=== PATIENT | female | born 1960 | race Caucasian/White ===

== ENCOUNTER → 2020-03-03 | Outpatient (CLI) | payer BC ==
[~2020-03-03] MED LIST: AMLO10TA8 PO; ATOR40TA78 PO; CALC-112 PO; CETI10CA PO; LEVO75TA5 PO; MV-M1TAB16 PO; OMEG100023 PO; PANT40TA6 PO; VALIUM PO
[2020-03-03 10:32] LABS: ALBUMIN 4.1 g/dL (3.4-5.0); ANION GAP 6 mmol/L (5-15); CALCIUM 9.7 mg/dL (8.5-10.1); CHLORIDE 106 mmol/L (98-107)
[2020-03-03 10:36] LABS: ALANINE AMINOTRANSFERASE 41 U/L (12-78); ALKALINE PHOSPHATASE 103 U/L (45-117); BILIRUBIN,TOTAL 0.4 mg/dL (0.2-1.0); CREATININE 1.18 mg/dL (0.55-1.02); TOTAL PROTEIN 7.8 g/dL (6.4-8.2)
== END | disposition home or self-care (01) ==
LOC: STAR 08:31
PROVIDERS: ATTEND Surgery
DX: Z01.818 Encounter for other preprocedural examination (principal); Z20.828 Contact with and (suspected) exposure to other viral communicable diseases; C50.412 Malignant neoplasm of upper-outer quadrant of left female breast; C50.511 Malignant neoplasm of lower-outer quadrant of right female breast
CPT/HCPCS: 36415; 80053; 87635; 93005

== ENCOUNTER 2020-03-08 07:59 | Inpatient (IN) | payer BC ==
[~2020-03-08] VITALS: Ht 167.6 cm; Wt 89.3 kg
[~2020-03-08 07:59] MED LIST changes: -VALIUM PO
[2020-03-08] MEDS ORDERED: VALIUM PO (08:39)
[2020-03-08 08:42] VITALS: BP 134/90
[2020-03-08] MEDS ORDERED: CHLORHEXIDINE 15 ML UDC MM ONE (09:00)
[2020-03-08] MEDS ORDERED: LACTATED RINGERS 1,000 ML IV SCH (09:00)
[2020-03-08] MEDS ORDERED: LIDOCAINE-MPF 1%, 5ML ONE (09:46)
[2020-03-08] MEDS ORDERED: BUPIVACAINE/PF 0.5% ONE (12:35)
[2020-03-08] MEDS ORDERED: EPINEPHRINE 1 MG/ML, 1ML ONE (12:35)
[2020-03-08] MEDS ORDERED: ISOSULFAN BLUE 10 MG/ML, 5ML IV ONE (12:35)
[2020-03-08] MEDS ORDERED: SCOPOLAMINE 1MG PATCH TD ONE (12:44)
[2020-03-08] MEDS ORDERED: ACETAMINOPHEN 500 MG TABLET ONE (12:44)
[2020-03-08] MEDS ORDERED: FENTANYL PF 250 MCG/5ML ONE ×3 (12:51→14:17)
[2020-03-08] MEDS ORDERED: PROPOFOL 50 ML ONE ×2 (12:53→13:52)
[2020-03-08] MEDS ORDERED: LIDOCAINE 2%, 20ML ONE (12:59)
[2020-03-08] MEDS ORDERED: METOPROLOL 1 MG/ML, 5ML ONE (12:59)
[2020-03-08] MEDS ORDERED: ACETAMINOPHEN 500 MG TABLET PO ONE (13:00)
[2020-03-08] MEDS ORDERED: SCOPOLAMINE 1MG PATCH TD SCH (13:00)
[2020-03-08] MEDS ORDERED: BUPIVACAINE/PF-EPI 0.5% 1:200K INFIL ONE (13:18)
[2020-03-08] MEDS ORDERED: LABETALOL 5MG/ML, 20ML IV PRN (13:30)
[2020-03-08] MEDS ORDERED: hydrALAzine 20 MG/ML, 1ML IV PRN ×2 (13:30→15:30)
[2020-03-08] MEDS ORDERED: HYDROmorphone 1 MG/ML, 1ML INJ IVPush PRN (13:30)
[2020-03-08] MEDS ORDERED: MEPERIDINE/PF 25MG/0.5ML IVPush PRN (13:30)
[2020-03-08] MEDS ORDERED: EPHEDRINE 50 MG/ML, 1ML IVPush PRN (13:30)
[2020-03-08] MEDS ORDERED: HALOPERIDOL 5 MG/ML IV PRN (13:30)
[2020-03-08] MEDS ORDERED: ONDANSETRON 2MG/ML, 2ML IVPush PRN ×2 (13:30→15:30)
[2020-03-08] MEDS ORDERED: PROMETHAZINE 12.5 MG SUPP PR PRN (13:30)
[2020-03-08] MEDS ORDERED: KETOROLAC 30 MG/1 ML IVPush PRN (13:30)
[2020-03-08] MEDS ORDERED: OXYcodone 5 MG/5 ML ORAL.SOL UDC PO PRN (13:30)
[2020-03-08] MEDS ORDERED: FENTANYL PF 100 MCG/2ML IV PRN (13:30)
[2020-03-08] MEDS ORDERED: METHOCARBAMOL 1,000 MG in DEXTROSE 5% 100 ML IV PRN (13:30)
[2020-03-08] MEDS ORDERED: SUCCINYLCHOLINE 20 MG/ML, 10ML ONE (14:58)
[2020-03-08] MEDS ORDERED: CEFAZOLIN 1,000 MG ONE (14:58)
[2020-03-08] MEDS ORDERED: ROCURONIUM 10MG/ML,5ML ONE (14:58)
[2020-03-08] MEDS ORDERED: NALOXONE 0.4 MG/ML, 1ML ONE (14:58)
[2020-03-08] MEDS ORDERED: GLYCOPYRROLATE 0.2MG/1ML, 5ML ONE (14:58)
[2020-03-08] MEDS ORDERED: NEOSTIGMINE 1 MG/ML, 10ML ONE (14:58)
[2020-03-08] MEDS ORDERED: ONDANSETRON 2MG/ML, 2ML ONE (14:58)
[2020-03-08] MEDS ORDERED: DEXAMETHASONE 4 MG/ML, 1ML ONE (14:58)
[2020-03-08] MEDS ORDERED: PROPOFOL 10 MG/ML, 20ML ONE (14:58)
[2020-03-08] MEDS ORDERED: PHENYLEPHRINE 10 MG/ML ONE (14:58)
[2020-03-08] MEDS ORDERED: SUGAMMADEX 200 MG/2 ML IVPush ONE (15:30)
[2020-03-08] MEDS ORDERED: LORazepam 2 MG/ML, 1ML IV PRN (15:30)
[2020-03-08] MEDS ORDERED: ACETAMINOPHEN 650 MG/20.3 ML UDC PO PRN (15:30)
[2020-03-08] MEDS ORDERED: HYDROmorphone 2 MG/ML, 1ML IVPush PRN (15:30)
[2020-03-08] MEDS ORDERED: DIPHENHYDRAMINE 25 MG CAPSULE PO PRN (15:30)
[2020-03-08] MEDS ORDERED: ENOXAPARIN 40 MG/0.4 ML SQ SCH (15:30)
[2020-03-08] MEDS ORDERED: PROMETHAZINE 25 MG/ML, 1ML IVPush PRN (16:00)
[2020-03-08] MEDS ORDERED: HALOPERIDOL 5 MG/ML ONE (16:05)
[2020-03-08] MEDS ORDERED: LORazepam 2 MG/ML, 1ML ONE (16:15)
[2020-03-08] MEDS: LORazepam 2 MG/ML, 1ML IVPush PRN ×2 (16:16→16:27)
[2020-03-08 17:40] VITALS: BP 138/82
[2020-03-08] MEDS: D5%-0.45% NACL 1,000 ML IV SCH (18:52)
[2020-03-08] MEDS: ATORVASTATIN 40 MG TABLET PO SCH (20:14)
[2020-03-08] MEDS: AMLODIPINE 10 MG TAB PO SCH (20:14)
[2020-03-08 20:43] VITALS: BP 104/73
[2020-03-08 23:39] VITALS: BP 103/72
[2020-03-09] MEDS: HYDROcodone/APAP 5/325 TABLET PO PRN ×4 (00:13→18:21)
[2020-03-09 04:23] VITALS: BP 134/87
[2020-03-09] MEDS: PANTOPRAZOLE 40MG TABLET PO SCH (05:26)
[2020-03-09] MEDS: LEVOTHYROXINE 75 MCG TABLET PO SCH (05:26)
[2020-03-09 07:06] VITALS: BP 125/89
[2020-03-09] MEDS: CETIRIZINE 10 MG TABLET PO SCH (08:02)
[2020-03-09] MEDS: CALCIUM/VITAMIN D3 250-125 TABLET PO SCH (08:02)
[2020-03-09] MEDS: MULTIVITAMINS/MINERALS TABLET PO SCH (08:02)
[2020-03-09] MEDS: D5%-0.45% NACL 1,000 ML IV SCH ×2 (08:05→22:07)
[2020-03-09 08:34] LABS: BASOPHILS % (AUTO) 0 % (0-1); EOSINOPHILS % (AUTO) 0 % (1-7); LYMPHOCYTES % (AUTO) 5 % (22-44); MEAN CORPUSCULAR HEMOGLOBIN 31.1 pg (27.0-34.8); MEAN CORPUSCULAR HGB CONC 32.9 g/dL (32.4-35.8); MEAN PLATELET VOLUME 8.1 fL (7.4-10.4); MONOCYTES % (AUTO) 5 % (2-9); NEUTROPHILS % (AUTO) 89 % (42-75); PLATELET COUNT 240 x10^3/uL (130-400); RED BLOOD COUNT 3.72 x10^6/uL (3.82-5.3); RED CELL DISTRIBUTION WIDTH 13.8 % (9.6-15.2)
[2020-03-09] MEDS ORDERED: OMEGA-3/FISH OIL CAPSULE PO SCH (09:00)
[2020-03-09 09:22] LABS: MD SCAN
[2020-03-09 12:33] VITALS: BP 116/75
[2020-03-09] MEDS ORDERED: EPINEPHRINE 1 MG/ML, 1ML ONE (19:14)
[2020-03-09] MEDS ORDERED: BUPIVACAINE/PF 0.5% ONE (19:14)
[2020-03-09] MEDS ORDERED: MIDAZOLAM 1 MG/ML, 2ML ONE (19:41)
[2020-03-09] MEDS ORDERED: FENTANYL PF 100 MCG/2ML ONE (19:42)
[2020-03-09] MEDS ORDERED: PROPOFOL 100 ML ONE (19:43)
[2020-03-09] MEDS ORDERED: LABETALOL 5MG/ML, 20ML IV PRN (20:00)
[2020-03-09] MEDS ORDERED: PROMETHAZINE 25 MG/ML, 1ML IV PRN (20:00)
[2020-03-09] MEDS ORDERED: DIAZEPAM 5 MG/ML, 2ML IVPush PRN (20:00)
[2020-03-09] MEDS ORDERED: KETOROLAC 30 MG/1 ML IV PRN (20:00)
[2020-03-09] MEDS ORDERED: HYDROmorphone 2 MG/ML, 1ML IVPush PRN (20:00)
[2020-03-09] MEDS ORDERED: ALBUTEROL SULFATE 2.5 MG/3 ML NPPB PRN (20:00)
[2020-03-09] MEDS ORDERED: hydrALAzine 20 MG/ML, 1ML IV PRN (20:00)
[2020-03-09] MEDS ORDERED: FENTANYL PF 100 MCG/2ML IV PRN (20:00)
[2020-03-09] MEDS ORDERED: MEPERIDINE/PF 25MG/0.5ML IVPush PRN (20:00)
[2020-03-09] MEDS ORDERED: OXYcodone 5 MG/5 ML ORAL.SOL UDC PO PRN (20:00)
[2020-03-09] MEDS ORDERED: ACETAMINOPHEN 325 MG TABLET PO PRN (20:00)
[2020-03-09] MEDS ORDERED: CEFAZOLIN 1,000 MG ONE (20:44)
[2020-03-09] MEDS ORDERED: NALOXONE 0.4 MG/ML, 1ML ONE (20:44)
[2020-03-09] MEDS ORDERED: PHENYLEPHRINE 10 MG/ML ONE (20:44)
[2020-03-09] MEDS ORDERED: DEXAMETHASONE 4 MG/ML, 1ML ONE (20:44)
[2020-03-09] MEDS ORDERED: ROCURONIUM 10MG/ML,5ML ONE (20:44)
[2020-03-09] MEDS ORDERED: GLYCOPYRROLATE 0.2MG/1ML, 5ML ONE (20:44)
[2020-03-09] MEDS ORDERED: ONDANSETRON 2MG/ML, 2ML ONE (20:44)
[2020-03-09] MEDS ORDERED: NEOSTIGMINE 1 MG/ML, 10ML ONE (20:44)
[2020-03-09] MEDS ORDERED: SUCCINYLCHOLINE 20 MG/ML, 10ML ONE (20:44)
[2020-03-09] MEDS ORDERED: PROPOFOL 10 MG/ML, 20ML ONE (20:44)
[2020-03-09 22:00] VITALS: BP 127/84
[2020-03-09] MEDS: AMLODIPINE 10 MG TAB PO SCH (22:06)
[2020-03-09] MEDS: ATORVASTATIN 40 MG TABLET PO SCH (22:06)
[2020-03-10 00:13] VITALS: BP 118/72
[2020-03-10] MEDS: HYDROcodone/APAP 5/325 TABLET PO PRN ×3 (03:21→11:22)
[2020-03-10 03:26] VITALS: BP 131/81
[2020-03-10] MEDS: PANTOPRAZOLE 40MG TABLET PO SCH (05:35)
[2020-03-10] MEDS: LEVOTHYROXINE 75 MCG TABLET PO SCH (05:36)
[2020-03-10 07:25] VITALS: BP 124/91
[2020-03-10] MEDS: CETIRIZINE 10 MG TABLET PO SCH (08:18)
[2020-03-10] MEDS: CALCIUM/VITAMIN D3 250-125 TABLET PO SCH (08:18)
[2020-03-10] MEDS: MULTIVITAMINS/MINERALS TABLET PO SCH (08:18)
[2020-03-10] MEDS: D5%-0.45% NACL 1,000 ML IV SCH (11:22)
[2020-03-10] MEDS ORDERED: HYDR-3240 PO (11:39)
[2020-03-10] MEDS ORDERED: ONDA4TAB7 PO (11:40)
[2020-03-10] MEDS ORDERED: CEPH-368 PO (11:40)
== END 2020-03-10 12:00 | disposition home or self-care (01) | DRG 580 ==
LOC: OUT 07:59 → ORIP 15:23 → OBSVTOIN 16:00 → 4NE 17:27 → DCLOUNGE 03-10 11:50
PROVIDERS: ADMIT Surgery; ATTEND Surgery
PROC: 07B60ZX Excision of Left Axillary Lymphatic, Open Approach, Diagnostic (ICD-10-PCS; 2020-03-08)
PROC: 07B50ZX Excision of Right Axillary Lymphatic, Open Approach, Diagnostic (ICD-10-PCS; 2020-03-08)
PROC: 0HTV0ZZ Resection of Bilateral Breast, Open Approach (ICD-10-PCS; principal; 2020-03-08 13:00)
PROC: 3E10X8Z Irrigation of Skin and Mucous Membranes using Irrigating Substance (ICD-10-PCS; 2020-03-09)
DX: C50.911 Malignant neoplasm of unspecified site of right female breast (principal); L76.32 Postprocedural hematoma of skin and subcutaneous tissue following other procedure; E78.00 Pure hypercholesterolemia, unspecified; I10 Essential (primary) hypertension; E03.9 Hypothyroidism, unspecified; C50.912 Malignant neoplasm of unspecified site of left female breast; Z17.0 Estrogen receptor positive status [ER+]; Z79.899 Other long term (current) drug therapy; Z88.5 Allergy status to narcotic agent
CPT/HCPCS: 36415; J3490; S0020; 82962; 85014; 85018; 85025; 88307; 88331; 88333; 88334; C1729; G0378; J0171; J0690; J1100; J1650; J2250; J2310; J2405; J2550; J2704; J2710; J3010; J0330; J1630; J2060; J2370; J7120

== ENCOUNTER 2020-03-08 08:00 | Outpatient (CLI) | payer BC ==
[~2020-03-08 08:00] MED LIST changes: +AMLO-211 PO; -AMLO10TA8 PO
[2020-03-08] MEDS ORDERED: VALIUM PO (08:39)
[2020-03-08] MEDS ORDERED: PROMETHAZINE 25 MG/ML, 1ML ONE (15:48)
[2020-03-08] MEDS ORDERED: DIPHENHYDRAMINE 50 MG/ML, 1ML ONE (16:02)
== END 2020-03-08 23:59 | disposition home or self-care (01) ==
LOC: RAD 08:00
PROVIDERS: ATTEND Surgery
DX: C50.412 Malignant neoplasm of upper-outer quadrant of left female breast (principal); C50.511 Malignant neoplasm of lower-outer quadrant of right female breast; Z17.0 Estrogen receptor positive status [ER+]
CPT/HCPCS: 38792; A9541

== ENCOUNTER 2020-03-14 08:10 | Inpatient (IN) | payer BC ==
[~2020-03-14] VITALS: Ht 167.6 cm; Wt 90.5 kg
[~2020-03-14 08:10] MED LIST changes: +CEPH-368 PO; +HYDR-3240 PO; +ONDA4TAB7 PO; +VALIUM PO
[2020-03-14] MEDS ORDERED: ONDANSETRON ODT 4 MG ONE (08:51)
[2020-03-14] MEDS ORDERED: ONDANSETRON ODT 4 MG PO ONE (09:00)
[2020-03-14 09:11] LABS: MEAN CORPUSCULAR HEMOGLOBIN 30.6 pg (27.0-34.8); MEAN CORPUSCULAR HGB CONC 32.5 g/dL (32.4-35.8); MEAN PLATELET VOLUME 8.3 fL (7.4-10.4); PLATELET COUNT 422 x10^3/uL (130-400); RED BLOOD COUNT 3.95 x10^6/uL (3.82-5.3); RED CELL DISTRIBUTION WIDTH 14.1 % (9.6-15.2)
[2020-03-14 09:24] LABS: ALBUMIN 3.5 g/dL (3.4-5.0); ANION GAP 14 mmol/L (5-15); CALCIUM 9.5 mg/dL (8.5-10.1); CHLORIDE 94 mmol/L (98-107)
[2020-03-14 09:27] LABS: ALANINE AMINOTRANSFERASE 29 U/L (12-78); ALKALINE PHOSPHATASE 120 U/L (45-117); BILIRUBIN,TOTAL 0.8 mg/dL (0.2-1.0); CREATININE 1.64 mg/dL (0.55-1.02); TOTAL PROTEIN 7.4 g/dL (6.4-8.2)
[2020-03-14] MEDS ORDERED: SODIUM CHLORIDE 0.9% 1,000ML IVBOLUS ONE (09:30)
[2020-03-14] MEDS ORDERED: SODIUM CHLORIDE FLUSH 10ML SYR IVF ONE (09:30)
[2020-03-14 09:47] LABS: MD YES
[2020-03-14 09:48] LABS: BAND#(MANUAL) 2.84 x10^3/uL; BANDS%(MANUAL) 9 % (0-7); LYMPH#(MANUAL) 0.32 x10^3/uL (1-3.4); LYMPHS% (MANUAL) 1 % (22-44); MONOS#(MANUAL) 1.26 x10^3/uL (0.3-2.7); MONOS% (MANUAL) 4 % (2-9); SEGS% (MANUAL) 86 % (42-75)
[2020-03-14 09:49] LABS: <PLATELET ESTIMATE> INCREASED; <PLT MORPHOLOGY> NORMAL PLT MORPH; <RBC MORPHOLOGY> NORMAL
[2020-03-14] MEDS ORDERED: SODIUM CHLORIDE 0.9%, 500ML IVBOLUS ONE (10:00)
[2020-03-14] MEDS ORDERED: CEFTRIAXONE PMX 1GM/50ML 50 ML IV ONE (10:00)
[2020-03-14] MEDS ORDERED: OMNIPAQUE 350 MG/ML, 100ML BOTTLE ONE (10:03)
[2020-03-14] MEDS ORDERED: CEFTRIAXONE PMX 1GM/50ML 50 ML ONE (10:28)
--- NOTE | 2020-03-14 10:58 | NUR ---
PUREWICK PLACED FOR PT COMFORT.
[2020-03-14] MEDS ORDERED: HYDROmorphone 1 MG/ML, 1ML INJ ONE (11:01)
[2020-03-14 11:03] LABS: MICROSCOPIC NOT IND
[2020-03-14] MEDS: HYDROmorphone 2 MG/ML, 1ML IVPush PRN ×2 (11:13→13:21)
[2020-03-14] MEDS ORDERED: VALIUM PO PRN (12:00)
[2020-03-14] MEDS ORDERED: PINK LADY ENEMA 490 ML BOTTLE PR PRN (12:00)
[2020-03-14] MEDS ORDERED: POLYETHYLENE GLYCOL 17 GM PACKET PO PRN (12:00)
[2020-03-14] MEDS ORDERED: ACETAMINOPHEN 325 MG TABLET PO PRN (12:00)
[2020-03-14] MEDS ORDERED: HYDROcodone/APAP 5/325 TABLET PO PRN (12:00)
[2020-03-14] MEDS ORDERED: SENNA/DOCUSATE TABLET PO SCH (12:00)
[2020-03-14] MEDS ORDERED: BISACODYL 10 MG SUPP PR PRN (12:00)
[2020-03-14 12:11] VITALS: BP 147/98
[2020-03-14] MEDS: LACTATED RINGERS 1,000 ML IV SCH (13:01)
[2020-03-14] MEDS: HEPARIN 5,000 UNITS/ML, 1ML SQ SCH ×2 (13:21→20:34)
[2020-03-14] MEDS ORDERED: DIAZEPAM 5 MG TABLET PO PRN (13:30)
[2020-03-14 14:15] VITALS: BP 145/98
[2020-03-14] MEDS ORDERED: MAGNESIUM CITRATE 300ML ORAL SOL ONE (15:12)
[2020-03-14] MEDS: PIPERACILLIN/TAZO/PMX 3.375GM 50 ML IV SCH ×2 (15:21→22:05)
[2020-03-14] MEDS: ACETAMINOPHEN 325 MG TABLET PO PRN (17:04)
[2020-03-14 19:04] VITALS: BP 130/87
[2020-03-14] MEDS: ATORVASTATIN 40 MG TABLET PO SCH (20:34)
[2020-03-15] MEDS: LACTATED RINGERS 1,000 ML IV SCH ×2 (00:26→15:34)
[2020-03-15 01:46] VITALS: BP 103/72
[2020-03-15] MEDS: ACETAMINOPHEN 325 MG TABLET PO PRN (02:31)
[2020-03-15] MEDS: PIPERACILLIN/TAZO/PMX 3.375GM 50 ML IV SCH ×3 (03:54→20:13)
[2020-03-15] MEDS: ONDANSETRON 2MG/ML, 2ML IVPush PRN ×2 (05:40→22:34)
[2020-03-15] MEDS: HEPARIN 5,000 UNITS/ML, 1ML SQ SCH ×3 (05:40→22:34)
[2020-03-15] MEDS ORDERED: LACTATED RINGERS 1,000 ML IVBOLUS ONE (07:00)
[2020-03-15] MEDS: PROMETHAZINE 25 MG/ML, 1ML IM PRN (07:35)
[2020-03-15 08:00] VITALS: BP 117/79
[2020-03-15 08:02] LABS: MEAN CORPUSCULAR HEMOGLOBIN 30.5 pg (27.0-34.8); MEAN CORPUSCULAR HGB CONC 32.4 g/dL (32.4-35.8); MEAN PLATELET VOLUME 8.3 fL (7.4-10.4); PLATELET COUNT 417 x10^3/uL (130-400); RED BLOOD COUNT 3.44 x10^6/uL (3.82-5.3); RED CELL DISTRIBUTION WIDTH 14.4 % (9.6-15.2)
[2020-03-15 08:12] LABS: ALANINE AMINOTRANSFERASE 25 U/L (12-78); ALBUMIN 2.6 g/dL (3.4-5.0); ANION GAP 8 mmol/L (5-15); CALCIUM 8.3 mg/dL (8.5-10.1); CHLORIDE 99 mmol/L (98-107); CREATININE 1.36 mg/dL (0.55-1.02)
[2020-03-15 08:15] LABS: ALKALINE PHOSPHATASE 128 U/L (45-117); BILIRUBIN,TOTAL 0.8 mg/dL (0.2-1.0); TOTAL PROTEIN 6.1 g/dL (6.4-8.2)
[2020-03-15 08:37] LABS: MD YES
[2020-03-15 08:38] LABS: BANDS%(MANUAL) 16 % (0-7); LYMPH#(MANUAL) 2.65 x10^3/uL (1-3.4); LYMPHS% (MANUAL) 9 % (22-44); MONOS#(MANUAL) 1.18 x10^3/uL (0.3-2.7); MONOS% (MANUAL) 4 % (2-9); SEG#(MANUAL) 20.87 x10^3/uL (1.8-6.8); SEGS% (MANUAL) 71 % (42-75)
[2020-03-15 08:39] LABS: <RBC MORPHOLOGY> NORMAL
[2020-03-15 08:40] LABS: <PLATELET ESTIMATE> INCREASED; <PLT MORPHOLOGY> NORMAL PLT MORPH; PMNS WITH VACUOLES 1+
[2020-03-15] MEDS ORDERED: POTASSIUM CHLORIDE 20 MEQ TAB.ER.PRT PO ONE ×2 (09:00→16:00)
[2020-03-15] MEDS ORDERED: LIDOCAINE JELLY 2%, 30GM TP ONE (09:00)
[2020-03-15] MEDS ORDERED: BENZOCAINE 20% SPRAY 0.5ML TP PRN (09:00)
[2020-03-15] MEDS ORDERED: POTASSIUM CHLORIDE 20 MEQ in SODIUM CHLORIDE 0.9% 250 ML IV ONE ×2 (09:00→15:30)
[2020-03-15] MEDS: PANTOPRAZOLE 40MG TABLET PO SCH (09:00)
[2020-03-15] MEDS ORDERED: DIAZEPAM 5 MG/ML, 2ML IV ONE (09:00)
[2020-03-15] MEDS ORDERED: SODIUM CHLORIDE 0.9% 1,000ML IVBOLUS ONE (09:00)
[2020-03-15] MEDS ORDERED: LIDOCAINE GEL 2%, 5ML TP ONE (11:00)
[2020-03-15 14:00] VITALS: BP 116/72
[2020-03-15 14:37] LABS: ANION GAP 7 mmol/L (5-15); CALCIUM 7.9 mg/dL (8.5-10.1); CHLORIDE 99 mmol/L (98-107); CREATININE 1.07 mg/dL (0.55-1.02)
[2020-03-15] MEDS: LEVOTHYROXINE 75 MCG TABLET PO SCH (15:31)
[2020-03-15] MEDS: CETIRIZINE 10 MG TABLET PO SCH (15:31)
[2020-03-15] MEDS: METHYLNALTREXONE 12 MG/0.6 ML SYR SQ SCH (20:00)
[2020-03-15] MEDS: LACTULOSE 20 GM/30 ML UDC NG SCH ×2 (20:13→21:00)
[2020-03-15] MEDS: ATORVASTATIN 40 MG TABLET PO SCH (20:15)
[2020-03-15 20:23] VITALS: BP 125/77
[2020-03-15] MEDS: BISACODYL 10 MG SUPP PR SCH (21:00)
[2020-03-16] MEDS: PIPERACILLIN/TAZO/PMX 3.375GM 50 ML IV SCH ×4 (00:54→20:17)
[2020-03-16 01:13] VITALS: BP 131/83
[2020-03-16] MEDS: HEPARIN 5,000 UNITS/ML, 1ML SQ SCH ×3 (05:24→20:18)
[2020-03-16] MEDS: LACTATED RINGERS 1,000 ML IV SCH ×2 (05:30→20:58)
[2020-03-16 06:09] LABS: MEAN CORPUSCULAR HEMOGLOBIN 30.4 pg (27.0-34.8); MEAN CORPUSCULAR HGB CONC 32.5 g/dL (32.4-35.8); MEAN PLATELET VOLUME 8.1 fL (7.4-10.4); PLATELET COUNT 309 x10^3/uL (130-400); RED BLOOD COUNT 2.98 x10^6/uL (3.82-5.3); RED CELL DISTRIBUTION WIDTH 14.2 % (9.6-15.2)
[2020-03-16 06:16] LABS: CHLORIDE 103 mmol/L (98-107)
[2020-03-16 06:23] LABS: ALANINE AMINOTRANSFERASE 23 U/L (12-78); ALKALINE PHOSPHATASE 112 U/L (45-117); ANION GAP 8 mmol/L (5-15); BILIRUBIN,TOTAL 0.6 mg/dL (0.2-1.0); CALCIUM 7.8 mg/dL (8.5-10.1); TOTAL PROTEIN 5.4 g/dL (6.4-8.2)
[2020-03-16 07:00] LABS: MD YES
[2020-03-16] MEDS ORDERED: POTASSIUM CHLORIDE 40 MEQ in SODIUM CHLORIDE 0.9% 500 ML IV ONE (07:00)
[2020-03-16 07:01] LABS: BAND#(MANUAL) 0.23 x10^3/uL; BANDS%(MANUAL) 1 % (0-7); LYMPH#(MANUAL) 0.46 x10^3/uL (1-3.4); LYMPHS% (MANUAL) 2 % (22-44); MONOS#(MANUAL) 1.37 x10^3/uL (0.3-2.7); MONOS% (MANUAL) 6 % (2-9); SEG#(MANUAL) 20.75 x10^3/uL (1.8-6.8); SEGS% (MANUAL) 91 % (42-75)
[2020-03-16 07:02] LABS: <PLATELET ESTIMATE> ADEQUATE; <PLT MORPHOLOGY> NORMAL PLT MORPH; POLYCHROMASIA 1+
[2020-03-16] MEDS ORDERED: KETOROLAC 30 MG/1 ML ONE (08:24)
[2020-03-16] MEDS ORDERED: KETOROLAC 30 MG/1 ML IVPush SCH (08:30)
[2020-03-16] MEDS: LACTULOSE 20 GM/30 ML UDC NG SCH (08:48)
[2020-03-16] MEDS: CETIRIZINE 10 MG TABLET PO SCH (08:48)
[2020-03-16] MEDS: PANTOPRAZOLE 40MG TABLET PO SCH (08:48)
[2020-03-16] MEDS: ONDANSETRON ODT 4 MG PO PRN ×2 (08:48→16:59)
[2020-03-16] MEDS: LEVOTHYROXINE 75 MCG TABLET PO SCH (08:48)
[2020-03-16] MEDS: BISACODYL 10 MG SUPP PR SCH ×2 (09:00→20:18)
[2020-03-16 09:05] VITALS: BP 116/80
[2020-03-16] MEDS ORDERED: PROMETHAZINE 25 MG/ML, 1ML IM PRN (09:30)
[2020-03-16] MEDS: POTASSIUM CHLORIDE 20 MEQ PACKET PO SCH ×2 (09:30→16:20)
[2020-03-16] MEDS: METOCLOPRAMIDE 5 MG/ML, 2ML IVPush SCH ×3 (12:16→20:17)
[2020-03-16 13:33] VITALS: BP 119/79
[2020-03-16 14:24] LABS: ANION GAP 3 mmol/L (5-15); CHLORIDE 103 mmol/L (98-107); CREATININE 1.25 mg/dL (0.55-1.02)
[2020-03-16 18:47] VITALS: BP 100/68
[2020-03-16] MEDS: METHYLNALTREXONE 12 MG/0.6 ML SYR SQ SCH (20:00)
[2020-03-16] MEDS: ATORVASTATIN 40 MG TABLET PO SCH (20:18)
[2020-03-16] MEDS: KETOROLAC 30 MG/1 ML IVPush PRN (20:54)
[2020-03-16] MEDS: ONDANSETRON 2MG/ML, 2ML IVPush PRN (20:54)
[2020-03-17] MEDS: PIPERACILLIN/TAZO/PMX 3.375GM 50 ML IV SCH ×4 (01:26→19:47)
[2020-03-17 02:30] VITALS: BP 138/71
[2020-03-17] MEDS: HEPARIN 5,000 UNITS/ML, 1ML SQ SCH ×3 (05:25→19:46)
[2020-03-17 05:36] LABS: BASOPHILS % (AUTO) 0 % (0-1); EOSINOPHILS % (AUTO) 1 % (1-7); LYMPHOCYTES % (AUTO) 10 % (22-44); MEAN CORPUSCULAR HEMOGLOBIN 30.5 pg (27.0-34.8); MEAN CORPUSCULAR HGB CONC 32.6 g/dL (32.4-35.8); MEAN PLATELET VOLUME 7.5 fL (7.4-10.4); MONOCYTES % (AUTO) 5 % (2-9); NEUTROPHILS % (AUTO) 84 % (42-75); PLATELET COUNT 263 x10^3/uL (130-400); RED BLOOD COUNT 2.48 x10^6/uL (3.82-5.3); RED CELL DISTRIBUTION WIDTH 14.2 % (9.6-15.2)
[2020-03-17 05:39] LABS: MD NO
[2020-03-17 05:44] LABS: ANION GAP 7 mmol/L (5-15); CALCIUM 7.9 mg/dL (8.5-10.1); CHLORIDE 105 mmol/L (98-107); CREATININE 1.11 mg/dL (0.55-1.02)
[2020-03-17 06:28] VITALS: BP_SYST 112; BP_SYST 132; BP_DIAS 66; BP_DIAS 75
[2020-03-17] MEDS: KETOROLAC 30 MG/1 ML IVPush PRN ×2 (08:26→17:27)
[2020-03-17] MEDS: POTASSIUM CHLORIDE 20 MEQ PACKET PO SCH ×2 (08:26→17:00)
[2020-03-17] MEDS: K-PHOS NEUTRAL 250MG TAB PO SCH ×2 (08:26→19:47)
[2020-03-17] MEDS: PROMETHAZINE 25 MG/ML, 1ML IM PRN ×2 (08:26→12:27)
[2020-03-17] MEDS: PANTOPRAZOLE 40MG TABLET PO SCH (08:27)
[2020-03-17] MEDS: CETIRIZINE 10 MG TABLET PO SCH (08:27)
[2020-03-17] MEDS: METOCLOPRAMIDE 5 MG/ML, 2ML IVPush SCH ×4 (08:27→19:46)
[2020-03-17] MEDS: LEVOTHYROXINE 75 MCG TABLET PO SCH (08:27)
[2020-03-17] MEDS: LACTATED RINGERS 1,000 ML IV SCH ×2 (08:42→17:34)
[2020-03-17] MEDS: BISACODYL 10 MG SUPP PR SCH ×2 (09:00→19:58)
[2020-03-17] MEDS ORDERED: LACTULOSE 3.3 GM/5 ML ORAL.SOL RC ONE (10:30)
[2020-03-17] MEDS ORDERED: METHYLNALTREXONE 12 MG/0.6 ML SYR SQ ONE ×2 (10:30)
[2020-03-17] MEDS ORDERED: ATROPINE 0.4 MG/ML, 1ML IVPush PRN (11:30)
[2020-03-17] MEDS ORDERED: NEOSTIGMINE 1 MG/ML, 10ML IV ONE (11:30)
[2020-03-17] MEDS ORDERED: ACETAMINOPHEN 500 MG TABLET PO SCH (12:00)
[2020-03-17] MEDS ORDERED: ACETAMINOPHEN 325 MG TABLET PO PRN (12:00)
[2020-03-17 12:24] VITALS: BP 131/99
[2020-03-17 12:29] LABS: OCCULT BLOOD NEGATIVE (NEGATIVE)
[2020-03-17] MEDS: LACTULOSE 3.3 GM/5 ML ORAL.SOL RC ONE ×2 (14:28→14:30)
[2020-03-17 15:16] LABS: OCCULT BLOOD NEGATIVE (NEGATIVE)
[2020-03-17] MEDS ORDERED: CHLORHEXIDINE 15 ML UDC ONE (15:37)
[2020-03-17] MEDS ORDERED: PROPOFOL 50 ML ONE (15:44)
[2020-03-17 18:26] VITALS: BP 95/60
[2020-03-17] MEDS: ATORVASTATIN 40 MG TABLET PO SCH (19:47)
[2020-03-18 00:05] VITALS: BP 104/64
[2020-03-18] MEDS: KETOROLAC 30 MG/1 ML IVPush PRN ×3 (01:46→19:26)
[2020-03-18] MEDS: LACTATED RINGERS 1,000 ML IV SCH (01:46)
[2020-03-18] MEDS: PIPERACILLIN/TAZO/PMX 3.375GM 50 ML IV SCH ×4 (02:32→22:30)
[2020-03-18] MEDS: LEVOTHYROXINE 75 MCG TABLET PO SCH ×2 (04:22→07:48)
[2020-03-18] MEDS: HEPARIN 5,000 UNITS/ML, 1ML SQ SCH ×3 (04:22→19:26)
[2020-03-18 06:08] LABS: ANION GAP 8 mmol/L (5-15); CALCIUM 7.6 mg/dL (8.5-10.1); CHLORIDE 108 mmol/L (98-107); CREATININE 0.89 mg/dL (0.55-1.02)
[2020-03-18 06:13] LABS: BASOPHILS % (AUTO) 0 % (0-1); EOSINOPHILS % (AUTO) 1 % (1-7); LYMPHOCYTES % (AUTO) 15 % (22-44); MEAN CORPUSCULAR HEMOGLOBIN 30.7 pg (27.0-34.8); MEAN CORPUSCULAR HGB CONC 32.6 g/dL (32.4-35.8); MEAN PLATELET VOLUME 7.8 fL (7.4-10.4); MONOCYTES % (AUTO) 6 % (2-9); NEUTROPHILS % (AUTO) 78 % (42-75); PLATELET COUNT 279 x10^3/uL (130-400); RED BLOOD COUNT 2.39 x10^6/uL (3.82-5.3); RED CELL DISTRIBUTION WIDTH 14.2 % (9.6-15.2)
[2020-03-18 06:31] LABS: MD NO
[2020-03-18 06:33] VITALS: BP 119/68
[2020-03-18] MEDS: BISACODYL 10 MG SUPP PR SCH (07:35)
[2020-03-18] MEDS: POTASSIUM CHLORIDE 20 MEQ PACKET PO SCH ×2 (07:47→16:42)
[2020-03-18] MEDS: POTASSIUM CHLORIDE 40 MEQ in SODIUM CHLORIDE 0.45% 1,000 ML IV SCH ×2 (07:47→16:42)
[2020-03-18] MEDS: METOCLOPRAMIDE 5 MG/ML, 2ML IVPush SCH ×4 (07:47→22:30)
[2020-03-18] MEDS: K-PHOS NEUTRAL 250MG TAB PO SCH ×2 (07:47→19:26)
[2020-03-18] MEDS: CETIRIZINE 10 MG TABLET PO SCH (07:48)
[2020-03-18] MEDS: PANTOPRAZOLE 40MG TABLET PO SCH (07:48)
[2020-03-18] MEDS ORDERED: METHYLNALTREXONE 12 MG/0.6 ML SYR SQ ONE (09:00)
[2020-03-18 12:38] VITALS: BP 130/88
[2020-03-18 19:12] VITALS: BP 133/73
[2020-03-18] MEDS: ATORVASTATIN 40 MG TABLET PO SCH (22:30)
[2020-03-19 00:35] VITALS: BP 132/72
[2020-03-19] MEDS: POTASSIUM CHLORIDE 40 MEQ in SODIUM CHLORIDE 0.45% 1,000 ML IV SCH ×4 (01:07→21:30)
[2020-03-19] MEDS: PIPERACILLIN/TAZO/PMX 3.375GM 50 ML IV SCH ×4 (03:36→21:30)
[2020-03-19] MEDS: HEPARIN 5,000 UNITS/ML, 1ML SQ SCH ×3 (03:37→20:18)
[2020-03-19] MEDS: KETOROLAC 30 MG/1 ML IVPush PRN ×4 (03:48→23:05)
[2020-03-19] MEDS: METOCLOPRAMIDE 5 MG/ML, 2ML IVPush SCH (05:28)
[2020-03-19] MEDS: LEVOTHYROXINE 75 MCG TABLET PO SCH (05:28)
[2020-03-19 05:36] LABS: MEAN CORPUSCULAR HEMOGLOBIN 30.2 pg (27.0-34.8); MEAN CORPUSCULAR HGB CONC 32.3 g/dL (32.4-35.8); MEAN PLATELET VOLUME 7.4 fL (7.4-10.4); PLATELET COUNT 299 x10^3/uL (130-400); RED CELL DISTRIBUTION WIDTH 14.1 % (9.6-15.2)
[2020-03-19 06:05] LABS: ANION GAP 9 mmol/L (5-15); CALCIUM 7.6 mg/dL (8.5-10.1); CHLORIDE 107 mmol/L (98-107)
[2020-03-19 06:07] LABS: CREATININE 0.85 mg/dL (0.55-1.02)
[2020-03-19 06:35] LABS: MD YES
[2020-03-19 06:36] LABS: BANDS%(MANUAL) 1 % (0-7); EOS% (MANUAL) 1 % (1-7); LYMPH#(MANUAL) 2.21 x10^3/uL (1-3.4); LYMPHS% (MANUAL) 23 % (22-44); METAMYELOCYTES# (MANUAL) 0.29 x10^3/uL (0-0); METAMYELOCYTES% (MANUAL) 3 % (0-1); MONOS#(MANUAL) 0.67 x10^3/uL (0.3-2.7); MONOS% (MANUAL) 7 % (2-9); SEG#(MANUAL) 6.24 x10^3/uL (1.8-6.8); SEGS% (MANUAL) 65 % (42-75)
[2020-03-19 06:37] LABS: HYPOCHROMIA 1+; POLYCHROMASIA 1+
[2020-03-19 06:38] LABS: <PLATELET ESTIMATE> ADEQUATE; <PLT MORPHOLOGY> NORMAL PLT MORPH
[2020-03-19 07:54] VITALS: BP 130/84
[2020-03-19] MEDS ORDERED: POLYETHYLENE GLYCOL 17 GM PACKET PO SCH (09:30)
[2020-03-19] MEDS ORDERED: DOCUSATE 100 MG CAPSULE PO SCH (09:30)
[2020-03-19] MEDS: CETIRIZINE 10 MG TABLET PO SCH (10:06)
[2020-03-19] MEDS: PANTOPRAZOLE 40MG TABLET PO SCH (10:07)
[2020-03-19] MEDS ORDERED: DOCUSATE 100 MG CAPSULE PO PRN (11:30)
[2020-03-19] MEDS ORDERED: POLYETHYLENE GLYCOL 17 GM PACKET PO PRN (11:30)
[2020-03-19 12:55] VITALS: BP 142/86
[2020-03-19 19:50] VITALS: BP 132/84
[2020-03-19] MEDS: ATORVASTATIN 40 MG TABLET PO SCH (20:17)
[2020-03-20 03:29] VITALS: BP 138/76
[2020-03-20] MEDS: PIPERACILLIN/TAZO/PMX 3.375GM 50 ML IV SCH ×3 (03:58→15:30)
[2020-03-20] MEDS: HEPARIN 5,000 UNITS/ML, 1ML SQ SCH ×2 (04:00→11:32)
[2020-03-20 04:03] LABS: OCCULT BLOOD POSITIVE (NEGATIVE)
[2020-03-20 04:08] LABS: BASOPHILS % (AUTO) 1 % (0-1); EOSINOPHILS % (AUTO) 2 % (1-7); LYMPHOCYTES % (AUTO) 24 % (22-44); MEAN CORPUSCULAR HEMOGLOBIN 30.9 pg (27.0-34.8); MEAN CORPUSCULAR HGB CONC 32.7 g/dL (32.4-35.8); MEAN PLATELET VOLUME 7.5 fL (7.4-10.4); MONOCYTES % (AUTO) 8 % (2-9); NEUTROPHILS % (AUTO) 65 % (42-75); PLATELET COUNT 334 x10^3/uL (130-400); RED BLOOD COUNT 2.59 x10^6/uL (3.82-5.3); RED CELL DISTRIBUTION WIDTH 14.5 % (9.6-15.2)
[2020-03-20 04:16] LABS: CHLORIDE 111 mmol/L (98-107)
[2020-03-20 04:24] LABS: ANION GAP 5 mmol/L (5-15); CALCIUM 8.1 mg/dL (8.5-10.1); CREATININE 0.92 mg/dL (0.55-1.02)
[2020-03-20] MEDS: KETOROLAC 30 MG/1 ML IVPush PRN (05:06)
[2020-03-20 05:20] LABS: MD SCAN
[2020-03-20 07:16] VITALS: BP 118/79
[2020-03-20] MEDS ORDERED: MAGNESIUM SULFATE PMX 2GM/50ML 50 ML IV ONE (07:30)
[2020-03-20] MEDS: LEVOTHYROXINE 75 MCG TABLET PO SCH (10:42)
[2020-03-20] MEDS: CETIRIZINE 10 MG TABLET PO SCH (10:42)
[2020-03-20] MEDS: PANTOPRAZOLE 40MG TABLET PO SCH (10:42)
[2020-03-20] MEDS ORDERED: IBUPROFEN 600 MG TABLET PO PRN (11:00)
[2020-03-20 13:18] VITALS: BP 143/104
[2020-03-20] MEDS ORDERED: AMOX1TAB64 PO (15:29)
[2020-03-20] MEDS ORDERED: SENN-220 PO (15:29)
[2020-03-20] MEDS ORDERED: POLY17PO5 PO (15:29)
[2020-03-20] MEDS: POTASSIUM CHLORIDE 40 MEQ in SODIUM CHLORIDE 0.45% 1,000 ML IV SCH (15:30)
== END 2020-03-20 18:22 | disposition home or self-care (01) | DRG 854 ==
LOC: ED 09:03 → EDIP 10:42 → 4NE 12:00 → 4EST 03-15 22:52 → 4NW 03-17 16:50
PROVIDERS: ADMIT Internal Medicine; ATTEND Family Medicine
PROC: 0T9B30Z Drainage of Bladder with Drainage Device, Percutaneous Approach (ICD-10-PCS; principal; 2020-03-14)
PROC: 0DH67UZ Insertion of Feeding Device into Stomach, Via Natural or Artificial Opening (ICD-10-PCS; 2020-03-15)
PROC: 0D9M8ZZ Drainage of Descending Colon, Via Natural or Artificial Opening Endoscopic (ICD-10-PCS; 2020-03-17)
PROC: 0DBM8ZX Excision of Descending Colon, Via Natural or Artificial Opening Endoscopic, Diagnostic (ICD-10-PCS; 2020-03-17)
PROC: 0DBL8ZX Excision of Transverse Colon, Via Natural or Artificial Opening Endoscopic, Diagnostic (ICD-10-PCS; 2020-03-17)
DX: A41.9 Sepsis, unspecified organism (principal); K55.9 Vascular disorder of intestine, unspecified; K56.7 Ileus, unspecified; K91.89 Other postprocedural complications and disorders of digestive system; N17.9 Acute kidney failure, unspecified; C50.911 Malignant neoplasm of unspecified site of right female breast; C50.912 Malignant neoplasm of unspecified site of left female breast; D64.9 Anemia, unspecified; E03.9 Hypothyroidism, unspecified; E11.9 Type 2 diabetes mellitus without complications; E78.5 Hyperlipidemia, unspecified; E87.6 Hypokalemia; F12.90 Cannabis use, unspecified, uncomplicated; F41.1 Generalized anxiety disorder; I10 Essential (primary) hypertension; I25.10 Atherosclerotic heart disease of native coronary artery without angina pectoris; J30.9 Allergic rhinitis, unspecified; K21.9 Gastro-esophageal reflux disease without esophagitis; K64.8 Other hemorrhoids; E66.9 Obesity, unspecified; F41.9 Anxiety disorder, unspecified; N64.89 Other specified disorders of breast; K57.30 Diverticulosis of large intestine without perforation or abscess without bleeding; D72.829 Elevated white blood cell count, unspecified; K59.81 Ogilvie syndrome; K64.1 Second degree hemorrhoids; Z20.828 Contact with and (suspected) exposure to other viral communicable diseases; Z78.0 Asymptomatic menopausal state; Z80.52 Family history of malignant neoplasm of bladder; Z80.8 Family history of malignant neoplasm of other organs or systems; Z83.3 Family history of diabetes mellitus; Z85.3 Personal history of malignant neoplasm of breast; Z90.13 Acquired absence of bilateral breasts and nipples; Z79.899 Other long term (current) drug therapy; Z79.01 Long term (current) use of anticoagulants; Z79.891 Long term (current) use of opiate analgesic; Z98.891 History of uterine scar from previous surgery; Z88.5 Allergy status to narcotic agent; Z68.32 Body mass index [BMI] 32.0-32.9, adult
CPT/HCPCS: 36415; 71045; 74018; 74021; 74177; 80048; 80053; 81003; 82272; 83605; 83735; 84100; 84145; 85025; 87040; 87081; 87635; 88305; 99285; G0378; J0696; J1170; J1644; J1885; J2405; J2543; J2550; J2704; J2710; J3480; Q0162; Q9967; C1729; J2765; J3475; J7030; J7040; J7050; J7120

== ENCOUNTER → 2020-03-31 | Outpatient (CLI) | payer BC ==
[~2020-03-31] MED LIST changes: +AMOX1TAB64 PO; +POLY17PO5 PO; +SENN-220 PO
== END | disposition home or self-care (01) ==
LOC: ROC 09:38
PROVIDERS: ATTEND Radiology Radiation Oncology
DX: C50.412 Malignant neoplasm of upper-outer quadrant of left female breast (principal); C50.511 Malignant neoplasm of lower-outer quadrant of right female breast; F41.9 Anxiety disorder, unspecified; I25.10 Atherosclerotic heart disease of native coronary artery without angina pectoris; I10 Essential (primary) hypertension; K21.9 Gastro-esophageal reflux disease without esophagitis; E78.5 Hyperlipidemia, unspecified; E78.00 Pure hypercholesterolemia, unspecified; E03.9 Hypothyroidism, unspecified; E11.9 Type 2 diabetes mellitus without complications; E66.9 Obesity, unspecified; Z68.32 Body mass index [BMI] 32.0-32.9, adult; Z79.899 Other long term (current) drug therapy; Z79.01 Long term (current) use of anticoagulants; Z79.891 Long term (current) use of opiate analgesic; Z17.0 Estrogen receptor positive status [ER+]; Z90.13 Acquired absence of bilateral breasts and nipples
CPT/HCPCS: 99214; G0463

== ENCOUNTER → 2020-04-13 | Outpatient (CLI) | payer BC | END | disposition home or self-care (01) | LOC: RAD 10:58 | PROVIDERS: ATTEND Internal Medicine Hematology & Oncology | DX: C50.811 Malignant neoplasm of overlapping sites of right female breast (principal); C50.812 Malignant neoplasm of overlapping sites of left female breast | CPT/HCPCS: 78306; A9503 ==

== ENCOUNTER → 2020-08-24 | Outpatient (CLI) | payer BC ==
[~2020-08-24] MED LIST changes: +HYDR-1067 PO; -HYDR-3240 PO
== END | disposition home or self-care (01) ==
LOC: CFH 11:24
PROVIDERS: ATTEND Family Medicine
DX: R22.31 Localized swelling, mass and lump, right upper limb (principal)

== ENCOUNTER → 2020-12-19 | Outpatient (CLI) | payer BC ==
[~2020-12-19] MED LIST changes: -HYDR-1067 PO; +HYDR-2214 PO
== END | disposition home or self-care (01) ==
LOC: CVU 11:56 → EDSTATUS 12:00
PROVIDERS: ATTEND Internal Medicine Hematology & Oncology
DX: C50.811 Malignant neoplasm of overlapping sites of right female breast (principal); C50.812 Malignant neoplasm of overlapping sites of left female breast; I35.8 Other nonrheumatic aortic valve disorders; I10 Essential (primary) hypertension; E78.5 Hyperlipidemia, unspecified
CPT/HCPCS: 93306; 93356